=== PATIENT | male | born 2000 | race Caucasian/White ===

== ENCOUNTER 2021-08-21 20:34 | Emergency (ER) | payer OTHER ==
[~2021-08-21] VITALS: Ht 180.3 cm; Wt 72.6 kg
== END 2021-08-21 23:54 | disposition home or self-care (01) ==
LOC: ER 20:34
DX: S60.572A Other superficial bite of hand of left hand, initial encounter (principal); S60.571A Other superficial bite of hand of right hand, initial encounter; W54.0XXA Bitten by dog, initial encounter; Y92.9 Unspecified place or not applicable